=== PATIENT | female | born 1995 | race Two or more races ===

== ENCOUNTER → 2024-10-04 07:10 | Outpatient (REF) | payer BC, SELFPAY ==
[2024-10-04 19:20] LABS: Luteinizing Hormone 7.51 mIU/ml; Progesterone 1.59 ng/ml
[2024-10-04 19:35] LABS: Estradiol 59.7 pg/ml
== END ==
LOC: REG 07:10
PROVIDERS: ATTENDING PHYSICIAN Obstetrics & Gynecology Reproductive Endocrinology
DX: N97.9 Female infertility, unspecified (principal)
CPT/HCPCS: 36415; 82670; 83002; 84144